=== PATIENT | male | born 1955 | race Caucasian/White ===

== ENCOUNTER → 2019-09-15 | Day surgery (SDC) | payer OTHER ==
[2019-09-09 15:24] LABS: BASOPHILS % 0.2 % (0.0-1.0); HEMATOCRIT 53.8 % (38.2-49.6); HEMOGLOBIN 17.9 g/dL (14.0-18.0); LYMPHOCYTES # (AUTO) 0.8 (1.0-3.2); LYMPHOCYTES % 8.7 % (18.0-39.1); MEAN CORPUSCULAR HEMOGLOBIN 29.3 pg (28-32); MEAN CORPUSCULAR HGB CONC 33.3 g/dL (31-35); MEAN CORPUSCULAR VOLUME 88.1 fL (81-99); MONOCYTES # (AUTO) 0.4 (0.2-0.8); MONOCYTES % 4.1 % (4.4-11.3); NEUTROPHILS # (AUTO) 7.7 (2.1-6.9); NEUTROPHILS % 86.8 % (38.7-80.0); PLATELET COUNT 149 x10e3/uL (140-360); RED BLOOD COUNT 6.11 x10e6/uL (4.3-5.7); RED CELL DISTRIBUTION WIDTH 13.8 % (11.7-14.4)
[~2019-09-15] MED LIST: ALIROCUMAB INJ; AMLODIPINE BESYL5 MG PO; ASPIR 8181 MG PO; ATENOLOL50 MG PO; CABERGOLINE0.5 MG PO; FENTANYL CITRATE/PF 100MCG/2 ML INJ ONE; LISINOPRIL-HCT1 EACH PO; MIDAZOLAM HCL 2 MG/2 ML VIAL ONE; MULTI-VITAMIN1 EACH PO; OR PHACO EYE KIT ONE; PLAVIX75 MG PO; PREOP PHACO EYE KIT ONE; PRILOSEC10 M1 PO; TESTOSTERO100 MG/1 M INJ; VIT D3 PO
[2019-09-15 12:30] VITALS: BP 127/78
--- OUTSIDE RECORDS SUMMARY | 2019-09-15 19:35 | XMS REPORT ---
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 Allergies, Adverse Reactions, Alerts This patient has no known allergies or adverse reactions. Medications This patient has no known medications. Encounters Start Date/Time End Date/Time Encounter Type Admission Type Attending Clinicians Care Facility Care Department Encounter ID 2019-04-22 09:31:00 2019-04-22 09:31:00 Outpatient [facility] [id number]
--- OUTSIDE RECORDS SUMMARY | 2019-09-15 19:35 | XMS REPORT | Summary of Care ---
Author Author Javan Hoskins, Sue Organization Unknown Address Unknown Phone Unavailable Care Team Providers Care Trim Setter Helper Name Role Phone YVETTE Bernard, ALIX Unavailable Unavailable NOLAN Waterman, VELIA Unavailable Unavailable GIOVANY Waterman, FABIOLA Unavailable Unavailable Javan Hoskins, Sue Unavailable Unavailable JOSE PEDERSEN [place], [place] Unavailable Unavailable PANDA PEDERSEN, JOHN Unavailable Unavailable MUNA PEDERSEN [place], ANNALISA Unavailable Unavailable JOSE Waterman, [place] Unavailable Unavailable GIOVANY PEDERSEN, FABIOLA Unavailable Unavailable NOLAN PEDERSEN, VELIA Unavailable Unavailable KATELYN PEDERSEN [place], JENNIE BREN Unavailable Unavailable LOBO PEDERSEN [place], MAURICE BRANCH Unavailable Unavailable Unavailable Unavailable Functional Status Name Dates Details Functional status health issues are not documented Status: Name Dates Details Cognitive status health issues are not documented Status: Problems Name Dates Details Allergic rhinitis (477.9, J30.9) Status: Active Seborrheic keratosis (702.19, L82.1) Status: Active Abscess of groin (682.2, L02.214) Status: Active Influenza vaccine needed (V04.81, Z23) Status: Active Shoulder pain (719.41, M25.519) Status: Active BMI 32.0-32.9,adult (V85.32, Z68.32) Status: Active Shoulder bursitis, right (726.10, M75.51) Status: Active Superior glenoid labrum lesion of right shoulder, initial encounter (840.7, S43.431A) Status: Active Chest pain (786.50, R07.9) Status: Active Abnormal EKG (794.31, R94.31) Status: Active SOBOE (shortness of breath on exertion) (786.05, R06.02) Status: Active Fatigue (780.79, R53.83) Status: Active Abnormal stress test (794.39, R94.39) Status: Active Anticoagulated on Coumadin (V58.61, Z79.01) Status: Active Allergy to iodine (V14.8, Z88.8) Status: Active Preop testing (V72.84, Z01.818) Status: Active History of coronary artery stent placement (V45.82, Z95.5) Status: Active Left knee pain (719.46, M25.562) Status: Active Neck pain (723.1, M54.2) Status: Active Osteoarthritis cervical spine (721.0, M47.812) Status: Active Patellofemoral stress syndrome of left knee (719.46, M22.2X2) Status: Active Presence of stent in LAD coronary artery (V45.82, Z95.5) Status: Active Presence of stent in left circumflex coronary artery (V45.82, Z95.5) Status: Active Bleeding from the nose (784.7, R04.0) Status: Active CAD (coronary artery disease) (414.00, I25.10) Status: Active Atrial fibrillation (427.31, I48.91) Status: Active Bilateral carpal tunnel syndrome (354.0, G56.03) Status: Active Osteoarthritis (715.90, M19.90) Status: Active Acute upper respiratory infection (465.9, J06.9) Status: Active Acute bronchitis, unspecified organism (466.0, J20.9) Status: Active On statin therapy (V58.69, Z79.899) Status: Active Strain of gastrocnemius muscle, left, initial encounter (844.8, S86.112A) Status: Active Sinus symptom (786.9, R09.89) Status: Active Acute pain of left knee (719.46, M25.562) Status: Active Medication monitoring encounter (V58.83, Z51.81) Status: Active Leg edema (782.3, R60.0) Status: Active Pain in both lower extremities (729.5, M79.604) Status: Active Chronic venous insufficiency (459.81, I87.2) Status: Active Hyperlipidemia (272.4, E78.5) Status: Active Lymphedema (457.1, I89.0) Status: Active Neuropathy (355.9, G62.9) Status: Active History of left foot drop (V13.59, Z87.39) Status: Active Closed fracture of proximal end of left fibula, unspecified fracture morphology, initial encounter (823.01, S82.832A) Status: Active Acute pain of left shoulder (719.41, M25.512) Status: Active Hyperprolactinemia (253.1, E22.1) Status: Active Testicular hypofunction (257.2, E29.1) Status: Active Essential (primary) hypertension (401.9, I10) Status: Active Mixed hyperlipidemia (272.2, E78.2) Status: Active Vitamin D deficiency (268.9, E55.9) Status: Active Arthritis of left knee (716.96, M17.12) Status: Active Medications Name Dates Details Multivitamins TABS TAKE 1 TABLET DAILY. VELIA FRANCISCO M.D. * Start : 14-Oct-2012 Active PriLOSEC 20 MG CPDR TAKE 1 CAPSULE DAILY. * Refills: 0 VELIA FRANCISCO M.D. * Start : 14-Oct-2012 Active Vitamin D3 50 MCG (2000 UT) Oral Capsule 1 a day * Quantity: 100 Refills: 6 VELIA FRANCISCO M.D. * Start : 24-Oct-2012 Active Cabergoline 0.5 MG Oral Tablet TAKE 1/2 (ONE-HALF) TABLET BY MOUTH ONCE A WEEK * Quantity: 6 Refills: 0 VELIA FRANCISCO M.D. * Start : 18-Nov-2012 Active Atenolol 25 MG Oral Tablet TAKE 1/2 (ONE-HALF) TABLET BY MOUTH ONCE DAILY * Quantity: 45 Refills: 1 VELIA FRANCISCO M.D. * Start : 01-May-2013 Active Lisinopril-hydroCHLOROthiazide 20-12.5 MG Oral Tablet TAKE 2 TABLETS BY MOUTH ONCE DAILY * Quantity: 180 Refills: 0 VELIA FRANCISCO M.D. * Start : 01-May-2013 Active amLODIPine Besylate 5 MG Oral Tablet TAKE 1 TABLET DAILY * Quantity: 30 Refills: 11 VELIA FRANCISCO M.D. * Start : 01-May-2013 Active Testosterone Cypionate 200 MG/ML Intramuscular Solution INJECT 0.6 ML (CC) INTRAMUSCULARLY EVERY 2 WEEKS * Quantity: 2 Refills: 4 VELIA FRANCISCO M.D. * Start : 11-Oct-2013 Active Compression Stocking apply QAM * Quantity: 2 Refills: 3 ALIX CRAWFORD N.P. * Start : 07-Apr-2014 Active Syringe 21G X 1" 3 ML For IM injection 2x a month * Quantity: 12 Refills: 4 VELIA FRANCISCO M.D. * Start : 01-Sep-2014 Active Nitrostat 0.4 MG Sublingual Tablet Sublingual PLACE 1 TABLET UNDER THE TONGUE EVERY 5 MINUTES FOR UP TO 3 DOSES NEEDED FOR CHEST PAIN.CALL 911 IF PAIN PERSISTS. * Quantity: 25 Refills: 0 FABIOLA ADAIR M.D. * Start : 19-Mar-2016 Active Clopidogrel Bisulfate 75 MG Oral Tablet TAKE 4 TABLETS BY MOUTH ON THE FIRST DAY AND THEN 1 TABLET DAILY * Quantity: 90 Refills: 2 FABIOLA ADAIR M.D. * Start : 07-May-2017 Active Aspirin 81 MG TABS TAKE 1 TABLET EVERY OTHER DAY * Refills: 0 Active Praluent 75 MG/ML SOPN Inject 75 mg subcutaneously every 2 weeks. * Quantity: 6 Refills: 3 FABIOLA ADAIR M.D. * Start : 02-Oct-2018 Active 2 x 1 ML Pen Allergies and Adverse Reactions Name Dates Details Brilinta TABS (Allergy) Status: Active Crestor TABS (Allergy) Reaction: Myalgia Status: Active Iodinated Contrast Media (Allergy) Status: Active iodine (Allergy) Status: Active Lipitor (Allergy) Reaction: Myalgia Status: Active pravastatin (Allergy) Reaction: Myalgia Status: Active Past Medical History Name Dates Details History of Nephrolithiasis (V13.01) Status: Resolved History of Pre-procedural cardiovascular examination (V72.81, Z01.810) Status: Resolved Procedures Procedure Dates Details History of Tonsillectomy Completed History of Hip Replacement Completed History of PTCA Completed History of Cath Stent Placement Completed History of Arthroscopy Knee Right Completed History of Back Surgery Completed Immunization Name Dates Details PPD on: 29-Oct-2008 Fluzone INJ Lot #: [id number] on: 15-May-2013 Influenza Lot #: [id number] on: 23-Jun-2014 Fluzone Quadrivalent 0.5 ML Intramuscular Suspension Prefilled Syringe Lot #: [id number] on: 11-May-2015 Fluzone Quadrivalent 0.5 ML Intramuscular Suspension Prefilled Syringe Lot #: [id number] on: 20-Jun-2016 Fluzone Quadrivalent 0.5 ML Intramuscular Suspension Lot #: [id number] on: 17-Jul-2017 Fluzone Quadrivalent 0.5 ML Intramuscular Suspension Prefilled Syringe Lot #: [id number] on: 22-Jul-2018 Family History Name Dates Details Family history of Lung Cancer (V16.1) Comments: Family History Status: Active Family history of Prostate Disorders Comments: Family History Status: Active Family history of Nephrolithiasis Comments: Family History Status: Active Name Dates Details Family history of Nephrolithiasis Status: Active Family history of varicose veins (V17.49, Z82.49) Status: Active Name Dates Details Family history of Nephrolithiasis Status: Active Social History Name Dates Details - Status: Name Dates Details Never smoker Vital Signs Date Test Result Details No Known Vitals to report Results Date Description Value Details Results not documented Plan of Care Name Dates Details Planned Observations Planned Goals not documented Planned Encounters Appointment; VELIA FRANCISCO M.D. On: 07-Oct-2019 8:00 Appointment; FABIOLA ADAIR M.D. On: 12-Nov-2019 9:00 Appointment; ADELA TIWARI NP On: 01-Dec-2019 8:00 Appointment; VELIA FRANCISCO M.D. On: 27-Jan-2020 8:00 Interventions Provided Discussion/Summary* Guideline Used: * Other: * to speak with staff member * Reason for Disposition: to speak with staff member. * Intended Caller Action: * Other: * tasked to Annalisa at [phone].Patient is requesting a call back. Did not want to elaborate. Instructions Name Dates Details Instructions not documented Encounters Appointment; FABIOLA ADAIR M.D. Encounter Diagnosis: Problem not documented On: 26-Sep-2017 9:00 Appointment; VELIA FRANCISCO M.D. Encounter Diagnosis: Problem not documented On: 04-Dec-2017 8:00 Appointment; FABIOLA ADAIR M.D. Encounter Diagnosis: Problem not documented On: 03-Feb-2018 12:40 Appointment; VELIA FRANCISCO M.D. Encounter Diagnosis: Problem not documented On: 26-Mar-2018 8:00 Appointment; FABIOLA ADAIR M.D. Encounter Diagnosis: Problem not documented On: 29-Apr-2018 13:20 [facility] Encounter Diagnosis: Problem not documented On: 05-May-2018 15:00 Appointment; FABIOLA ADAIR M.D. Encounter Diagnosis: Problem not documented On: 06-May-2018 13:00 Appointment; FABIOLA ADAIR M.D. Encounter Diagnosis: Problem not documented On: 22-Jul-2018 13:00 Appointment; VELIA FRANCISCO M.D. Encounter Diagnosis: Problem not documented On: 30-Jul-2018 8:00 Appointment; JENNIE ZEPEDA M.D. Encounter Diagnosis: Problem not documented On: 26-Sep-2018 13:15 Appointment; FABIOLA ADAIR M.D. Encounter Diagnosis: Problem not documented On: 02-Oct-2018 9:00 Appointment; JENNIE ZEPEDA M.D. Encounter Diagnosis: Problem not documented On: 28-Oct-2018 13:30 Appointment; FABIOLA ADAIR M.D. Encounter Diagnosis: Problem not documented On: 04-Dec-2018 9:40 Appointment; VELIA FRANCISCO M.D. Encounter Diagnosis: Problem not documented On: 15-Jan-2019 9:30 Appointment; MAURICE DIAMOND M.D. Encounter Diagnosis: Problem not documented On: 20-Feb-2019 9:45 Appointment; [facility] Encounter Diagnosis: Problem not documented On: 16-Mar-2019 8:00 Appointment; [facility] Encounter Diagnosis: Problem not documented On: 16-Mar-2019 9:00 [facility]; [facility] Encounter Diagnosis: Problem not documented On: 02-Apr-2019 8:00 Appointment; FABIOLA ADAIR M.D. Encounter Diagnosis: Problem not documented On: 02-Apr-2019 14:00 Appointment; MAURICE DIAMOND M.D. Encounter Diagnosis: Problem not documented On: 03-Apr-2019 10:15 Appointment; FABIOLA ADAIR M.D. Encounter Diagnosis: Problem not documented On: 30-Apr-2019 9:20 Appointment; FABIOLA ADAIR M.D. Encounter Diagnosis: Problem not documented On: 05-May-2019 13:20 Appointment; ANNALISA TORO M.D. Encounter Diagnosis: Problem not documented On: 06-May-2019 8:30 Appointment; ADELA TIWARI NP Encounter Diagnosis: Problem not documented On: 19-May-2019 8:15 Appointment; ADELA TIWARI NP Encounter Diagnosis: Problem not documented On: 27-May-2019 8:45 Appointment; ADELA TIWARI NP Encounter Diagnosis: Problem not documented On: 03-Jun-2019 8:15 Appointment; VELIA FRANCISCO M.D. Encounter Diagnosis: Problem not documented On: 03-Jun-2019 10:30
== END | disposition home or self-care (01) ==
LOC: OR 09:27
PROVIDERS: ATTEND Ophthalmology
DX: H25.12 Age-related nuclear cataract, left eye (principal); I25.10 Atherosclerotic heart disease of native coronary artery without angina pectoris; I10 Essential (primary) hypertension; Z01.810 Encounter for preprocedural cardiovascular examination; Z01.812 Encounter for preprocedural laboratory examination; Z79.02 Long term (current) use of antithrombotics/antiplatelets; Z79.82 Long term (current) use of aspirin; Z95.5 Presence of coronary angioplasty implant and graft
CPT/HCPCS: 36415; 66984; 85025; 93005; J2250; J3010

== ENCOUNTER → 2019-09-29 | Day surgery (SDC) | payer OTHER ==
[2019-09-29 12:00] VITALS: BP 132/80
== END | disposition home or self-care (01) ==
LOC: OR 08:34
PROVIDERS: ATTEND Ophthalmology
DX: H25.11 Age-related nuclear cataract, right eye (principal); I25.10 Atherosclerotic heart disease of native coronary artery without angina pectoris; I10 Essential (primary) hypertension; K21.9 Gastro-esophageal reflux disease without esophagitis; Z79.02 Long term (current) use of antithrombotics/antiplatelets; Z79.82 Long term (current) use of aspirin; Z95.5 Presence of coronary angioplasty implant and graft; Z87.442 Personal history of urinary calculi
CPT/HCPCS: 66984; J2250; J3010